=== PATIENT | male | born 1970 | race Two or more races ===

== ENCOUNTER 2019-02-03 19:34 | Emergency (ER) | payer MEDICAID ==
--- NOTE | 2019-02-03 20:21 | ED Physician Chart ---
ED Chief Complaint/HPI - Patient Information Date Seen:: 02/03/19 Time Seen:: 20:20 Chief Complaint:: Left foot trauma History of Present Illness:: 48 yo male presented to ER due to left foot trauma caused by a heavy falling tree branch this afternoon. Pt could not put weight on the left foot due to severe pain and swelling of the left foot. Pt also had some abrasions on the right arm. Allergies:: Allergies Allergy/AdvReac Type Severity Reaction Status Date / Time No Known Allergies Allergy Verified 02/03/19 19:50 Vitals:: Vital Signs - 8 hr 02/03/19 19:34 Temp 98.7 F HR 85 RR 18 BP 116/83 O2 Sat % 98 ED Review of Systems - Review of Systems General/Constitutional: No fever, No chills Skin: Skin lesions Head: No headache Eyes: No pain ENT: No nasal drainage Neck: No neck pain Cardio Vascular: No chest pain Pulmonary: No SOB GI: No nausea, No vomiting Musculoskeletal: Bone or joint pain Neurological: No focal symptoms ED Past Medical History - Past Medical History Past Medical History: No significant medical hx Social History: Non Smoker, Alcohol, No Drug Use Surgical History: None Family Medical History - Family Member Mother History Unknown: Yes ED Physical Exam - Physical Examination General/Constitutional: Awake, Alert Head: Atraumatic Eyes: PERRL, EOMI Other Skin comments:: Skin abrasions on the right arm. ENMT: Nasal exam nl Neck: No nuchal rigidity Respiratory: No Wheeze/Rhonchi/Rales Cardio Vascular: RRR, No murmur, gallop, rubs, NL S1 S2 GI: No tenderness/rebounding/guarding Other Extremities comments:: Left foot significant edema and tenderness worse on the mid dorsal foot. Neuro/Psych: Alert/oriented, No focal deficits ED Labs/Radiology/EKG Results - Radiology Results Results: Left foot X ray: comminuted fractures of 2nd, 3rd and 4th proximal metatarsal phalanges. ED Assessment - Assessment General Assessment: Fractures of 2nd, 3rd and 4th metatarsal phalanges of the left foot Skin abrasions on the right arm Assessment/Comments:: Left foot X ray Immobilization left foot in a posterior splint Splint Care: Splint applied Post Procedure/Splint Exam: No Active Bleeding, Neuro/Vascular Exam (good perfusion) Comments:: Posterior short leg splint from the left toes to below the left knee level. ED Septic Shock - . Is Septic Shock (SBP<90, OR Lactate>4 mmol\L) present?: No - <6hrs of presentation: Vital Signs: Vital Signs - 8 hr 02/03/19 19:34 Temp 98.7 F HR 85 RR 18 BP 116/83 O2 Sat % 98 ED Reassessment (Disposition) - Reassessment Reassessment Condition:: Improved - Aftercare/Follow up Instructions Notes:: Use crutches Avoid weight-bearing activities Apply ice on top of the left foot Elevated the foot above the heart level Ibuprofen as needed Follow up orthopedic surgeon DARCIE - Patient Disposition Discharge/Transfer:: Home
--- NOTE | 2019-02-04 09:38 | Diagnostic Imaging Report ---
Left foot 3 views Indication: Trauma Comparison: none Findings: There are displaced fractures involving the proximal aspects of the second, third, and fourth metatarsals with subluxation of at least the third and fourth tarsometatarsal joints. There is involvement of the articular surfaces. Diffuse surrounding soft tissue swelling is noted. Lisfranc ligament injury cannot be excluded. There is diffuse soft tissue swelling seen dorsally. Impression: Displaced fractures involving the proximal aspect of the second, third and fourth metatarsals with comminution. There is also at least partial subluxation of the third and fourth tarsal/metatarsal joints. There is involvement of the proximal articular surfaces. There is probable injury to the Lisfranc ligament. Recommend clinical correlation further assessment with CT or MRI and orthopedic consultation. Diffuse soft tissue swelling noted dorsally.
== END 2019-02-03 21:31 | disposition home or self-care (01) ==
LOC: ER 19:34
DX: S92.322A Displaced fracture of second metatarsal bone, left foot, initial encounter for closed fracture (principal); S92.332A Displaced fracture of third metatarsal bone, left foot, initial encounter for closed fracture; S92.342A Displaced fracture of fourth metatarsal bone, left foot, initial encounter for closed fracture; W20.8XXA Other cause of strike by thrown, projected or falling object, initial encounter; Y93.89 Activity, other specified; Y92.89 Other specified places as the place of occurrence of the external cause; Y99.8 Other external cause status
CPT/HCPCS: 73630-TC-LT; Z7502

== ENCOUNTER 2019-03-07 14:39 | Emergency (ER) | payer MEDICAID ==
--- NOTE | 2019-03-07 15:14 | ED Physician Chart ---
ED Chief Complaint/HPI - Patient Information Date Seen:: 03/07/19 Time Seen:: 15:09 Chief Complaint:: left foot pain and swelling History of Present Illness:: this is a 48 yr old male bib his girlfriend because he is concerned about the pain and swelling. he was seen here on february 04, 2019 evaluated and treated. he was told to see an orthopedic surgeon jillian after his foot was placed in a splint. his gril friend states that he has not seen a doctor since leaving here and now he is having more pain and swelling. Allergies:: Allergies Allergy/AdvReac Type Severity Reaction Status Date / Time No Known Allergies Allergy Verified 02/03/19 19:50 Vitals:: Vital Signs - 8 hr 03/07/19 14:52 Temp 99.1 F HR 63 RR 16 BP 132/78 O2 Sat % 95 Historian:: Patient Review:: Nurse's Note Reviewed, Old Chart Reviewed ED Review of Systems - Review of Systems General/Constitutional: No fever, No chills, No weight loss, No weakness, No diaphoresis, No edema, No loss of appetite Skin: No skin lesions, No rash, No bruising Head: No headache, No light-headedness Eyes: No loss of vision, No pain, No diplopia ENT: No earache, No nasal drainage, No sore throat, No tinnitus Neck: No neck pain, No swelling, No thyromegaly, No stiffness, No mass noted Cardio Vascular: No chest pain, No palpitations, No PND, No orthopnea, No edema Pulmonary: No SOB, No cough, No sputum, No wheezing GI: No nausea, No vomiting, No diarrhea, No pain, No melena, No hematochezia, No constipation, No hematemesis G/U: No dysuria, No frequency, No hematuria Musculoskeletal: No bone or joint pain, No back pain, No muscle pain, Other ( left foot pain) Endocrine: No polyuria, No polydipsia Psychiatric: No prior psych history, No depression, No anxiety, No suicidal ideation Hematopoietic: No bruising, No lymphadenopathy Allergic/Immuno: No urticaria, No angioedema Neurological: No syncope, No focal symptoms, No weakness, No paresthesia, No headache, No seizure, No dizziness, No confusion, No vertigo ED Past Medical History - Past Medical History Obtainable: Yes Past Medical History: Other (left foot fractures) Family History: None Social History: Non Smoker, No Alcohol, No Drug Use, Single, Employed Surgical History: None Psychiatricy History: None Medication: Reviewed Family Medical History - Family Member Mother History Unknown: Yes ED Physical Exam - Physical Examination General/Constitutional: Awake, Well-developed, well-nourished, Alert, No distress, GCS 15, Non-toxic appearing, Ambulatory Head: Atraumatic Eyes: Lids, conjuctiva normal, PERRL, EOMI Skin: Nl inspection, No rash, No skin lesions, No ecchymosis, Well hydrated, No lymphadenopathy ENMT: External ears, nose nl, Nasal exam nl, Lips, teeth, gums nl Neck: Nontender, Full ROM w/o pain, No JVD, No nuchal rigidity, No bruit, No mass, No stridor Respiratory: Nl effort/Exclusion, Clear to Auscultation, No Wheeze/Rhonchi/Rales Cardio Vascular: RRR, No murmur, gallop, rubs, NL S1 S2 GI: No tenderness/rebounding/guarding, No organomegaly, No hernia, Normal BS's, Nondistended, No mass/bruits, No McBurney tenderness : No CVA tenderness Extremities: No tenderness or effusion, Full ROM, normal strength in all extremities, No edema, Normal digits & nails Other Extremities comments:: the left dorsal foot is swollen and the rom is limited. the foot has limited rom because of pain. Neuro/Psych: Alert/oriented, DTR's symmetric, Normal sensory exam, Normal motor strength, Judgement/insight normal, Mood normal, Normal gait, No focal deficits Misc: Normal back, No paraspinal tenderness ED Assessment - Assessment General Assessment: the old x-ray were reviewed. ED Septic Shock - . Is Septic Shock (SBP<90, OR Lactate>4 mmol\L) present?: No - <6hrs of presentation: Vital Signs: Vital Signs - 8 hr 03/07/19 14:52 Temp 99.1 F HR 63 RR 16 BP 132/78 O2 Sat % 95 ED Reassessment (Disposition) - Reassessment Reassessment Condition:: Unchanged - Diagnosis Diagnosis:: resolving left foot fractures - Aftercare/Follow up Instructions Aftercare/Follow-Up Instructions:: Counseled pt regarding lab results/diagnosis & need follow up, Refer to Discharge Instructions, Counseled pt & family regarding lab results/diagnosis & need follow up Notes:: this patient patient was given antibiotics and told to see an orhopedic surgeon jillian once again. we had a uzbek interperter to relay the findings and diposition. - Patient Disposition Discharge/Transfer:: Home Condition at Disposition:: Unchanged
== END 2019-03-07 15:50 | disposition home or self-care (01) ==
LOC: ER 14:39
DX: M79.672 Pain in left foot (principal); M79.89 Other specified soft tissue disorders
CPT/HCPCS: 99283; 96372; J0696; Z7502